=== PATIENT | female | born 1970 ===

== ENCOUNTER 2017-11-29 00:16 | Emergency (ER) | payer SELFPAY ==
[2017-11-29 00:17] VITALS: BMI 20.1
[2017-11-29 00:33] VITALS: O2SAT 98
--- NOTE | 2017-11-29 02:12 | C.PDOC ---
History Of Present Illness 47 year old female presents to the ED c/o pain and swelling to her left 2nd toe. Patient reports that she dropped a frying perez on her foot. Patient denies weakness, numbness, other injuries. Time Seen by Provider: 11/29/17 00:49 Chief Complaint (Nursing): Lower Extremity Problem/Injury History Per: Patient Onset/Duration Of Symptoms: Hrs Current Symptoms Are (Timing): Still Present Recent travel outside of the [place]: No Additional History Per: Patient - Ankle/Foot Description Of Injury: Struck With Object Past Medical History Reviewed: Historical Data, Nursing Documentation, Vital Signs Vital Signs: Last Vital Signs Temp 98.2 F 11/29/17 00:25 Pulse 84 11/29/17 00:25 Resp 20 11/29/17 00:25 BP 108/73 11/29/17 00:25 Pulse Ox 98 11/29/17 00:25 - Medical History PMH: No Chronic Diseases Surgical History: No Surg Hx Family History: States: Unknown Family Hx - Social History Hx Alcohol Use: No Hx Substance Use: No Review Of Systems Constitutional: Negative for: Fever, Chills Musculoskeletal: Positive for: Foot Pain. Negative for: Leg Pain Skin: Negative for: Rash Neurological: Negative for: Weakness, Numbness, Headache, Dizziness Physical Exam - Physical Exam Appears: Non-toxic, No Acute Distress Skin: Normal Color, Warm, Dry Head: Atraumatic, Normacephalic Eye(s): bilateral: Normal Inspection Extremity: Normal ROM, Tenderness (left distal 2nd toe, ecchymosis), Capillary Refill (< 2 seconds), Swelling (moderate left distal 2nd toe) Pulses: Left Dorsalis Pedis: Normal, Right Dorsalis Pedis: Normal Neurological/Psych: Oriented x3, Normal Speech, Normal Cognition, Normal Motor, Normal Sensation Gait: Steady (with pain) ED Course And Treatment O2 Sat by Pulse Oximetry: 98 (ON RA) Pulse Ox Interpretation: Normal - Other Rad Left foot X-Ray X-Ray: Interpreted by Me, Viewed By Me Interpretation: Left 2nd distal phalanx non displaced fracture Progress Note: Plan: - Motrin 600 mg PO. - Left foot X-Ray. Patient's left 2nd toe was placed on a helen tape and patient was given a ortho shoe. Patient was advised to follow up with podiatry. 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 - Scribe Statement The provider has reviewed the documentation as recorded by the Scribe Dayron Carpio All medical record entries made by the Scribe were at my direction and personally dictated by me. I have reviewed the chart and agree that the record accurately reflects my personal performance of the history, physical exam, medical decision making, and the department course for this patient. I have also personally directed, reviewed, and agree with the discharge instructions and disposition.
[2017-11-29 03:01] VITALS: BP 112/69; PULSE 77; RESP 17; TEMP 97.8
--- NOTE | 2017-11-29 09:26 | RAD ---
Date of service: 2017-11-29 01:17:35 PROCEDURE: Left toe left 2nd toe HISTORY: FRYING PAIN FELL ON FOOT, 2ND TOE SWELLING COMPARISON: No prior TECHNIQUE: Three views of the left 2nd toe. FINDINGS: There is a comminuted fracture distal tuft distal phalanx 2nd toe with mild surrounding soft tissue swelling IMPRESSION: Comminuted fracture distal tuft distal phalanx left 2nd toe with mild surrounding soft tissue swelling
== END 2017-11-29 02:36 | disposition home or self-care (01) ==
LOC: C.ER 00:16
DX: S92.535A Nondisplaced fracture of distal phalanx of left lesser toe(s), initial encounter for closed fracture (principal); W22.8XXA Striking against or struck by other objects, initial encounter